=== PATIENT | female | born 2000 | race Caucasian/White ===

== ENCOUNTER 2024-05-27 23:46 | Emergency (ER) | payer SELFPAY ==
[~2024-05-27] VITALS: Ht 162.6 cm; Wt 101.2 kg
[2024-05-27 23:57] VITALS: BP 142/107; PULSE 78; RESP 18; TEMP 98; O2SAT 98
[2024-05-28 01:30] LABS: APPEARANCE,URINE CLEAR (CLEAR); BILIRUBIN,URINE NEGATIVE (NEGATIVE); BLOOD, URINE NEGATIVE (NEGATIVE); COLOR,URINE YELLOW (YELLOW); LEUKOCYTE ESTERASE ,URINE NEGATIVE (NEGATIVE); NITRITE, URINE NEGATIVE (NEGATIVE); PROTEIN,URINE NEGATIVE (NEGATIVE); UGLUCOSE NEGATIVE (NEGATIVE)
[2024-05-28] MEDS ORDERED: ONDA-188 SL (02:11)
[2024-05-28] MEDS ORDERED: IBUP-2213 PO (02:11)
[2024-05-28] MEDS: ONDANSETRON 4 MG ODT PO ONE (02:21)
[2024-05-28] MEDS: KETOROLAC 60 MG/2 ML VIAL IM ONE (02:22)
[2024-05-28 02:24] VITALS: BP 142/107; PULSE 78; RESP 18; TEMP 98; O2SAT 98
== END 2024-05-28 02:24 | disposition home or self-care (01) ==
LOC: MED 23:46
DX: R51.9 Headache, unspecified (principal); R22.9 Localized swelling, mass and lump, unspecified; M54.2 Cervicalgia; R42 Dizziness and giddiness
CPT/HCPCS: 70450; 81003; 81025; 96372; 99285; J1885; Q0162